=== PATIENT | female | born 1980 | race Caucasian/White ===

== ENCOUNTER 2017-11-28 08:44 | Emergency (ER) | payer MEDICAID ==
[~2017-11-28] VITALS: Ht 160 cm; Wt 63.6 kg
[2017-11-28 09:14] VITALS: BP 118/74
== END 2017-11-28 10:17 | disposition home or self-care (01) ==
LOC: EMS 08:46
DX: M54.5 Low back pain (principal); M54.2 Cervicalgia
CPT/HCPCS: 99283